=== PATIENT | female | born 1975 | race Caucasian/White ===

== ENCOUNTER 2020-06-19 10:09 | Outpatient (REF) | payer OTHER, SELFPAY ==
[2020-06-19 10:42] LABS: COVID-19 Test Negative (Negative)
== END 2020-06-19 10:10 | disposition home or self-care (01) ==
LOC: HO.LAB 10:09
PROVIDERS: Visit Provider Internal Medicine
DX: Z20.828 Contact with and (suspected) exposure to other viral communicable diseases (principal)
CPT/HCPCS: 87635

== ENCOUNTER 2020-06-23 08:36 | Outpatient (REF) | payer OTHER, SELFPAY ==
[2020-06-23 09:26] LABS: COVID-19 Test Negative (Negative)
== END 2020-06-23 08:37 | disposition home or self-care (01) ==
LOC: HO.LAB 08:36
PROVIDERS: Visit Provider Internal Medicine
DX: Z20.828 Contact with and (suspected) exposure to other viral communicable diseases (principal)
CPT/HCPCS: 87635

== ENCOUNTER 2020-07-03 11:03 | Outpatient (REF) | payer OTHER, SELFPAY ==
[2020-07-03 11:21] LABS: COVID-19 Test Negative (Negative)
== END 2020-07-03 11:04 | disposition home or self-care (01) ==
LOC: HO.LAB 11:03
PROVIDERS: PCP Pediatrics; Visit Provider Internal Medicine
DX: Z20.828 Contact with and (suspected) exposure to other viral communicable diseases (principal)
CPT/HCPCS: 87635; C9803